=== PATIENT | female | born 1930 | race Caucasian/White ===

== ENCOUNTER 2017-10-06 06:51 | Emergency (ER) | payer MEDICARE ==
[~2017-10-06] VITALS: Ht 152.4 cm; Wt 56.7 kg
[~2017-10-06 06:51] MED LIST: ATOR10 PO; Adalat Cc90 MG PO; CALMAGZIN PO; CIPR500 PO; CITA20 PO; CLOP75 PO; HYDCHL12.5 PO; HYDCHL25 PO; LOSA50 PO; MECL25 PO; METF500 PO; METF500C; METF500C PO; NATURE THROID PO; NIFE90ER PO; POTCHL10ER PO; TELM20 PO
== END 2017-10-06 09:03 | disposition home or self-care (01) ==
LOC: ER 06:51
DX: S09.90XA Unspecified injury of head, initial encounter (principal); S20.419A Abrasion of unspecified back wall of thorax, initial encounter; E11.9 Type 2 diabetes mellitus without complications; I10 Essential (primary) hypertension; Z79.899 Other long term (current) drug therapy; Z79.84 Long term (current) use of oral hypoglycemic drugs; W19.XXXA Unspecified fall, initial encounter; Y92.009 Unspecified place in unspecified non-institutional (private) residence as the place of occurrence of the external cause
CPT/HCPCS: 70450; 71046; 72070; 93005; 93010; 99284-25

== ENCOUNTER 2017-12-20 14:05 | Emergency (ER) | payer MEDICARE ==
[~2017-12-20] VITALS: Ht 162.6 cm; Wt 59.0 kg
[2017-12-20] MEDS ORDERED: TRAM50 PO (16:16)
== END 2017-12-20 17:33 | disposition home or self-care (01) ==
LOC: ER 14:05
DX: S52.572A Other intraarticular fracture of lower end of left radius, initial encounter for closed fracture (principal); S52.612A Displaced fracture of left ulna styloid process, initial encounter for closed fracture; W18.30XA Fall on same level, unspecified, initial encounter; Z79.899 Other long term (current) drug therapy; Z79.84 Long term (current) use of oral hypoglycemic drugs; E11.9 Type 2 diabetes mellitus without complications; I10 Essential (primary) hypertension
CPT/HCPCS: 25605; 73100; 73110; 73130; 99283-25

== ENCOUNTER → 2017-12-24 | Outpatient (CLI) | payer MEDICARE ==
[~2017-12-24] MED LIST changes: +TRAM50 PO
[2017-12-24 19:42] LABS: Source, Urine Clean Catch
[2017-12-24 19:48] LABS: Bilirubin, Urine Neg (Neg); Blood, Urine Neg (Neg); Glucose Qualitative, Urine Neg (Neg); Ketones, Urine Neg (Neg); Leukocyte Esterase, Urine 3+ (Neg); Nitrite, Urine Neg (Neg); Protein, Urine 1+ (Neg); Specific Gravity, Urine 1.015 (1.003-1.022); Urobilinogen, Urine 1+ (Normal)
[2017-12-24 19:59] LABS: Appearance, Urine Cloudy (Clear); Color, Urine Yellow (P-Yellow)
[2017-12-24 20:01] LABS: Mucus Light (0-Heavy)
[2017-12-24 20:02] LABS: Bacteria Rare /hpf; Squamous Epithelial Cells Rare /hpf (Few)
== END | disposition home or self-care (01) ==
LOC: LAB SHORT 18:30 → LAB 18:30
DX: N39.0 Urinary tract infection, site not specified (principal)
CPT/HCPCS: 81001; 87086

== ENCOUNTER → 2018-04-14 | Outpatient (CLI) | payer MEDICARE ==
[~2018-04-14] MED LIST changes: +ACET500 PO; +ATOR20 PO; +BISA5EC PO; +CHOL10002 PO; +CYAN500 PO; +Celexa10 MG PO; +FURO20 PO; +MELA3 PO; +MIRALAX17 GM PO; +ONDA4ODT MM; +POTCHL20ER PO; +QUET25 PO; +XARELTO15 MG PO
[2018-04-14 15:29] LABS: Source, Urine Clean Catch
[2018-04-14 15:37] LABS: Appearance, Urine Hazy (Clear); Bilirubin, Urine Neg (Neg); Blood, Urine 1+ (Neg); Color, Urine Yellow (P-Yellow); Glucose Qualitative, Urine Neg (Neg); Ketones, Urine Neg (Neg); Leukocyte Esterase, Urine Neg (Neg); Nitrite, Urine Pos (Neg); Protein, Urine 1+ (Neg); Specific Gravity, Urine 1.015 (1.003-1.022); Urobilinogen, Urine NORM (Normal)
[2018-04-14 15:48] LABS: White Blood Cells, Urine 0-2 /hpf (0-5)
[2018-04-14 15:49] LABS: Red Blood Cells, Urine Not Seen /hpf (0-2)
[2018-04-14 15:50] LABS: Bacteria Many /hpf; Squamous Epithelial Cells Few /hpf (Few)
== END | disposition home or self-care (01) ==
LOC: LAB 15:27 → LAB SHORT 15:27
DX: N39.0 Urinary tract infection, site not specified (principal)
CPT/HCPCS: 81001; 87077; 87086; 87186

== ENCOUNTER → 2018-07-19 | Outpatient (CLI) | payer MEDICARE ==
[2018-07-19 14:35] LABS: Appearance, Urine Hazy (Clear); Bilirubin, Urine Neg (Neg); Blood, Urine Neg (Neg); Color, Urine Yellow (P-Yellow); Glucose Qualitative, Urine Neg (Neg); Ketones, Urine Neg (Neg); Leukocyte Esterase, Urine 3+ (Neg); Nitrite, Urine Neg (Neg); Protein, Urine 1+ (Neg); Urobilinogen, Urine NORM (Normal)
[2018-07-19 15:21] LABS: Amorphous Light (0-Heavy); Bacteria Rare /hpf; Mucus Mod (0-Heavy); Red Blood Cells, Urine Rare /hpf (0-2); Squamous Epithelial Cells Many /hpf (Few); Transitional Epithelial Cells Few /hpf (0-Rare)
== END | disposition home or self-care (01) ==
LOC: LAB SHORT 13:15 → LAB 13:15
DX: N39.0 Urinary tract infection, site not specified (principal)
CPT/HCPCS: 81001

== ENCOUNTER 2018-10-07 11:30 | Emergency (ER) | payer MEDICARE ==
[~2018-10-07] VITALS: Ht 157.5 cm; Wt 59.0 kg
[~2018-10-07 11:30] MED LIST changes: -ATOR20 PO; +GAVILAX17 GM PO; +LOSARTAN POTAS100 MG PO; -MIRALAX17 GM PO; -POTCHL20ER PO; +Potassium20 MEQ/11 PO
[2018-10-07] MEDS ORDERED: Ultram50 MG PO (13:08)
== END 2018-10-07 14:04 | disposition home or self-care (01) ==
LOC: ER 11:30
DX: S42.021A Displaced fracture of shaft of right clavicle, initial encounter for closed fracture (principal); W18.30XA Fall on same level, unspecified, initial encounter; Z79.899 Other long term (current) drug therapy; Z79.84 Long term (current) use of oral hypoglycemic drugs; E11.9 Type 2 diabetes mellitus without complications; I10 Essential (primary) hypertension; F03.90 Unspecified dementia, unspecified severity, without behavioral disturbance, psychotic disturbance, mood disturbance, and anxiety
CPT/HCPCS: 29105; 73030; 99283-25

== ENCOUNTER → 2018-10-18 | Outpatient (CLI) | payer MEDICARE ==
[~2018-10-18] MED LIST changes: +Ultram50 MG PO
[2018-10-18 10:45] LABS: Bilirubin, Urine Neg (Neg); Blood, Urine 1+ (Neg); Glucose Qualitative, Urine Neg (Neg); Ketones, Urine Neg (Neg); Leukocyte Esterase, Urine 3+ (Neg); Nitrite, Urine Pos (Neg); Protein, Urine 1+ (Neg); Urobilinogen, Urine NORM (Normal); pH, Urine 6.5 (5.0-8.0)
[2018-10-18 11:07] LABS: Appearance, Urine Hazy (Clear); Color, Urine Yellow (P-Yellow)
[2018-10-18 11:08] LABS: Bacteria Many /hpf; Squamous Epithelial Cells Mod /hpf (Few)
== END | disposition home or self-care (01) ==
LOC: LAB SHORT 09:59 → LAB 09:59
DX: N39.0 Urinary tract infection, site not specified (principal)
CPT/HCPCS: 81001; 87077; 87086; 87186

== ENCOUNTER → 2018-12-13 | Outpatient (CLI) | payer MEDICARE ==
[2018-12-13 14:55] LABS: Bilirubin, Urine Neg (Neg); Blood, Urine Neg (Neg); Glucose Qualitative, Urine Neg (Neg); Ketones, Urine Neg (Neg); Leukocyte Esterase, Urine 1+ (Neg); Nitrite, Urine Neg (Neg); Protein, Urine 1+ (Neg); Specific Gravity, Urine 1.015 (1.003-1.022); Urobilinogen, Urine 1+ (Normal); pH, Urine 6.5 (5.0-8.0)
[2018-12-13 15:04] LABS: Appearance, Urine Clear (Clear); Color, Urine Yellow (P-Yellow)
[2018-12-13 15:06] LABS: Bacteria Mod /hpf; Red Blood Cells, Urine 0-2 /hpf (0-2); Squamous Epithelial Cells Few /hpf (Few)
== END | disposition home or self-care (01) ==
LOC: LAB SHORT 14:40 → LAB 14:40
DX: N39.0 Urinary tract infection, site not specified (principal)
CPT/HCPCS: 81001; 87077; 87086; 87186